=== PATIENT | female | born 1995 | race American Indian/Alaskan Native ===

== ENCOUNTER 2020-11-26 10:20 | Emergency (ER) | payer SELFPAY ==
[2020-11-26 11:27] VITALS: BP 117/80
--- NOTE | 2020-11-26 11:31 | Event Note ---
ED Screening Note ED Screening Note: hx of asthma has not had inhaler in 4 years for a couple days has had cough with mucus production, wheezing, SOB, chest tightness she is a current every day smoker LNMP 10/24/20 no significant wheezing on exam This initial assessment/diagnostic orders/clinical plan/treatment(s) is/are subject to change based on patients health status, clinical progression and re- assessment by fellow clinical providers in the ED. Further treatment and workup at subsequent clinical providers discretion. Patient/guardian urged not to elope from the ED as their condition may be serious if not clinically assessed and managed. Initial orders include: urine, preg, xr chest, meds
[2020-11-26] MEDS ORDERED: predniSONE 20 MG TAB PO ONE (11:37)
[2020-11-26] MEDS ORDERED: IPRATROPIUM/ALBUTEROL SULFATE 3 ML AMPUL.NEB IH ONE (11:37)
--- NOTE | 2020-11-26 11:54 | Emergency Department Report ---
ED General Adult HPI - General Chief complaint: Adult Asthma Stated complaint: ADALID Time Seen by Provider: 11/26/20 11:28 Source: patient Mode of arrival: Ambulatory Limitations: No Limitations - History of Present Illness Initial comments: 25-year-old female patient with history of exercise-induced asthma presents emergency department complaints of nonproductive cough and chest tightness starting 3 days ago. Patient does not have an inhaler at home. No known sick contacts. No current steroid or antibiotic use. No recent travel. Patient works in a warehouse. She has not received her COVID-19 vaccine series. Denies fever, chills, hemoptysis, nausea, vomiting, diarrhea. Denies all other complaints at this time. - Related Data Previous Rx's Medication Instructions Recorded Last Taken Type Albuterol Sulfate [Proair 90 mcg IH Q4H PRN #1 aer.pw.bas 11/26/20 Unknown Rx Digihaler] Benzonatate [Tessalon Perles] 200 mg PO Q8HR #30 capsule 11/26/20 Unknown Rx predniSONE [Deltasone] 20 mg PO QDAY 5 Days tab 11/26/20 Unknown Rx Allergies Allergy/AdvReac Type Severity Reaction Status Date / Time No Known Allergies Allergy Unverified 11/26/20 11:21 ED Review of Systems ROS: Stated complaint: ADALID Other details as noted in HPI Other: GENERAL: Negative for fever. CARDIOVASCULAR: Positive for chest tightness PULMONARY: Positive for cough GASTROINTESTINAL: Negative for abdominal pain. MUSCULOSKELETAL: Negative for back pain. NEUROLOGICAL: Negative for headache. INTEGUMENTARY: Negative for rash. ED Past Medical Hx - Past Medical History Previous Medical History?: Yes Hx Asthma: Yes - Surgical History Past Surgical History?: No - Social History Smoking Status: Current Every Day Smoker Substance Use Type: Alcohol - Medications Home Medications: Home Medications Medication Instructions Recorded Confirmed Last Taken Type Albuterol Sulfate [Proair 90 mcg IH Q4H PRN #1 aer.pw.bas 11/26/20 Unknown Rx Digihaler] Benzonatate [Tessalon Perles] 200 mg PO Q8HR #30 capsule 11/26/20 Unknown Rx predniSONE [Deltasone] 20 mg PO QDAY 5 Days tab 11/26/20 Unknown Rx ED Physical Exam - General Limitations: No Limitations - Other Other exam information: General: Awake and alert. No acute distress. Head: Atraumatic, normocephalic. Eyes: EOMI. Pupils are equal and round. Normal sclera and conjunctiva. ENT: Oral mucosa is moist. Normal pharyngeal exam. Neck: Supple. No lymphadenopathy. Pulmonary: No respiratory distress. Intermittent cough noted. Clear to auscultation bilaterally. Cardiac: Regular rate and rhythm. Pulses are palpable and equal bilaterally. No lower extremity cyanosis or edema. Skin: Warm and dry. No rashes. Abdomen: Soft, non-tender, non-protuberant. No guarding, rigidity, or rebound. Bowel sounds are normal. No organomegaly or masses noted. Back: Normal alignment. No CVA tenderness. Extremities: Symmetrical. Full range of motion intact. Neurological: Alert and oriented, appropriately interactive, no focal deficits. Psych: Cooperative. Appropriate mood and affect. Speech is evenly metered. Thoughts are logically construed. ED Course Vital Signs 11/26/20 11:24 Temperature 99 F Pulse Rate 83 Respiratory 20 Rate Blood Pressure 117/80 O2 Sat by Pulse 100 Oximetry ED Medical Decision Making - Medical Decision Making Differential diagnosis including but not limited to: asthma exacerbation, influenza, pneumonia, pleural effusion, pneumothorax, pertussis On reevaluation, patient remains stable. No hypoxia, no respiratory distress. States her symptoms have improved following breathing treatment ordered during medical screening examination. test ordered during medical screening examination is negative. History and exam findings suggestive of viral upper respiratory infection. Due to her history of asthma, patient will be discharged home with beta agonist inhaler and short course of glucocorticoids. Referred to primary care provider for close outpatient follow-up. Patient expressed understanding and is agreeable to plan of care. Lifestyle modifications discussed. Strict return precautions provided. Repeat exam is unremarkable and benign. History, exam, diagnostic testing, and current condition do not suggest worrisome pathology to warrant further testing, continued ED treatment, admission, or surgical evaluation at this point. Given the low probability of a significant medical illness, it would be more likely to result in harm than benefit to perform further testing at this stage. Discussed findings, presumptive diagnosis, need for follow-up and specific signs/symptoms that should prompt immediate return to the emergency department. Instructions were explained in detail to the patient in addition to giving written discharge information. Patient expressed understanding and was given the opportunity to ask questions, all of which were satisfactorily answered prior to discharge home. Critical care attestation.: If time is entered above; I have spent that time in minutes in the direct care of this critically ill patient, excluding procedure time. ED Disposition Clinical Impression: Viral upper respiratory tract infection with cough, History of asthma Disposition: TO HOME OR SELFCARE Is pt being admited?: No Does the pt Need Aspirin: No Condition: Stable Instructions: Viral Respiratory Infection, [id number] Additional Instructions: Use Albuterol as needed for wheezing. Take Prednisone with food as directed. Take Tessalon as directed for cough. Honey is an excellent natural cough suppressant. Avoid environmental triggers which may worsen your symptoms. Follow-up with primary care provider this week. Call tomorrow to schedule an appointment. Return to the emergency department immediately for new or worsening symptoms. Prescriptions: predniSONE [Deltasone] 20 mg PO QDAY 5 Days tab Albuterol Sulfate [Proair Digihaler] 90 mcg IH Q4H PRN #1 aer.pw.bas PRN Reason: Wheezing Benzonatate [Tessalon Perles] 200 mg PO Q8HR #30 capsule Referrals: PRIMARY CAREMD [Primary Care Provider] - 3-5 Days PA RUIZ MD [Staff Physician] - 3-5 Days [facility] [Outside] - 3-5 Days [facility] [Outside] - 3-5 Days [facility] [Outside] - 3-5 Days [facility] [Provider Group] - 3-5 Days Forms: Work/School Release Form(ED) Time of Disposition: 13:12
[2020-11-26 12:23] LABS: HCG Qualitative,Urine Negative (Negative)
--- NOTE | 2020-11-26 12:59 | XRay Report ---
XR chest routine 2V INDICATION / CLINICAL INFORMATION: cough, sob. COMPARISON: None available. FINDINGS: SUPPORT DEVICES: None. HEART /PULMONARY VASCULATURE: No significant abnormality. LUNGS / PLEURA: No significant pulmonary or pleural abnormality. No pneumothorax. ADDITIONAL FINDINGS: No significant additional findings. IMPRESSION: 1. No acute findings. Signer Name: Reno Bowling MD Signed: 11/26/2020 12:54 PM Workstation Name: [id number]
== END 2020-11-26 13:30 | disposition home or self-care (01) ==
LOC: EDSEX → ED 10:20
DX: J06.9 Acute upper respiratory infection, unspecified (principal); J45.909 Unspecified asthma, uncomplicated; F17.200 Nicotine dependence, unspecified, uncomplicated; Z72.89 Other problems related to lifestyle; Z79.899 Other long term (current) drug therapy
CPT/HCPCS: 71046; 81025; 99284; J7512

== ENCOUNTER 2020-12-22 10:53 | Emergency (ER) | payer SELFPAY ==
[2020-12-22 12:37] VITALS: BP 126/81
--- NOTE | 2020-12-22 13:08 | Emergency Department Report ---
ED General Adult HPI - General Chief complaint: Extremity Problem,Nontraumatic Stated complaint: LEG PAIN Time Seen by Provider: 12/22/20 13:04 Source: patient Mode of arrival: Ambulatory Limitations: No Limitations - History of Present Illness Initial comments: 25-year-old female patient presents to the emergency department with complaints of right lower back pain radiating to her right leg starting 3 days ago. Patient states she has experienced similar symptoms on a recurrent basis since sustaining an injury while playing basketball years ago. She has been taking Tylenol and Aleve with limited relief. There was no new fall, trauma, or injury. Patient states pain is worse with lifting and weightbearing. Denies headache, neck pain, bladder/bowel incontinence, urinary retention, saddle anesthesia, paresthesias, weakness, numbness. Denies all other complaints at this time. Severity scale (0 -10): 5 - Related Data Previous Rx's Medication Instructions Recorded Last Taken Type Albuterol Sulfate [Proair 90 mcg IH Q4H PRN #1 aer.pw.bas 11/26/20 Unknown Rx Digihaler] Benzonatate [Tessalon Perles] 200 mg PO Q8HR #30 capsule 11/26/20 Unknown Rx predniSONE [Deltasone] 20 mg PO QDAY 5 Days tab 11/26/20 Unknown Rx Lidocaine [Lidoderm] 1 each TP BID #20 adh..patch 12/22/20 Unknown Rx Naproxen 500 mg PO BID #20 tablet 12/22/20 Unknown Rx Allergies Allergy/AdvReac Type Severity Reaction Status Date / Time No Known Allergies Allergy Unverified 11/26/20 11:21 ED Review of Systems ROS: Stated complaint: LEG PAIN Other details as noted in HPI Other: GENERAL: Negative for fever. CARDIOVASCULAR: Negative for chest pain. PULMONARY: Negative for shortness of breath. GASTROINTESTINAL: Negative for abdominal pain. MUSCULOSKELETAL: Positive for back pain. NEUROLOGICAL: Negative for headache. INTEGUMENTARY: Negative for rash. ED Past Medical Hx - Past Medical History Previous Medical History?: Yes Hx Asthma: Yes - Surgical History Past Surgical History?: No - Social History Smoking Status: Current Every Day Smoker Substance Use Type: Alcohol - Medications Home Medications: Home Medications Medication Instructions Recorded Confirmed Last Taken Type Albuterol Sulfate [Proair 90 mcg IH Q4H PRN #1 aer.pw.bas 06/20/21 Unknown Rx Digihaler] Benzonatate [Tessalon Perles] 200 mg PO Q8HR #30 capsule 11/26/20 Unknown Rx predniSONE [Deltasone] 20 mg PO QDAY 5 Days tab 11/26/20 Unknown Rx Lidocaine [Lidoderm] 1 each TP BID #20 adh..patch 12/22/20 Unknown Rx Naproxen 500 mg PO BID #20 tablet 12/22/20 Unknown Rx ED Physical Exam - General Limitations: No Limitations - Other Other exam information: General: Awake, appropriately interactive, no acute distress. Neck: Supple. Full range of motion intact. Cardiovascular: Normal peripheral perfusion. Pulmonary: No respiratory distress. Patient is speaking normally without use of accessory muscles. Skin: No apparent rashes or lesions. Neurological: No facial asymmetry. Speech is clear. Follows commands. Patient is alert and oriented. Back: Right lumbar paraspinal tenderness. No palpable muscle spasm. No midline tenderness. No step-offs. Positive straight leg raise on the right with symptoms reproducible along the L3 nerve root distribution. No saddle anesthesia. Ambulatory without assistance. Psych: Cooperative. Appropriate mood and affect. ED Course Vital Signs 12/22/20 12:36 Temperature 97.9 F Pulse Rate 57 L Respiratory 18 Rate Blood Pressure 126/81 [Right] O2 Sat by Pulse 100 Oximetry ED Medical Decision Making - Medical Decision Making Differential diagnosis including but not limited to: sprain, strain, sciatica, disk herniation, cauda equina syndrome, spinal stenosis Patient presents to emergency department complaints of acute exacerbation of chronic back pain. History and exam findings consistent with sciatica. The patients back pain is not associated with numbness, tingling, or loss of strength. There is no acute urinary incontinence or retention and no bowel incontinence or retention. There is no saddle anesthesia. The patient is afebrile and neurovascularly intact. No clinical evidence for acute nerve compression (such as cauda equine syndrome) or infection (such as epidural abscess). It has been explained to the patient that advanced imaging such as CT or MRI is not indicated at this time but should be considered if symptoms recur or worsen. Discharged home with appropriate prescriptions and instructions to follow up with primary care provider. Strict return precautions provided. Emphasized the importance of outpatient follow-up and specific signs/symptoms that should warrant immediate return to the emergency department. Patient expressed understanding and was given the opportunity to ask questions, all of which were satisfactorily answered prior to discharge home. Critical care attestation.: If time is entered above; I have spent that time in minutes in the direct care of this critically ill patient, excluding procedure time. ED Disposition Clinical Impression: Acute exacerbation of chronic low back pain Disposition: TO HOME OR SELFCARE Is pt being admited?: No Does the pt Need Aspirin: No Condition: Stable Instructions: Acute Back Pain, Adult Additional Instructions: Take Tylenol every 4 hours as needed for pain. Take Naprosyn twice daily with food as needed for pain. Apply Lidoderm patches to affected area as needed for pain. Apply heat to affected area as needed for pain. Gradually advance physical activity slowly as tolerated. Follow-up with primary care provider this week. Call today to schedule an appointment. See referral information below. Return to the emergency department immediately for new or worsening symptoms. Prescriptions: Lidocaine [Lidoderm] 1 each TP BID #20 adh..patch Naproxen 500 mg PO BID #20 tablet Referrals: PA RUIZ MD [Staff Physician] - 3-5 Days [facility] [Provider Group] - 3-5 Days Forms: Work/School Release Form(ED) Time of Disposition: 13:08
== END 2020-12-22 13:20 | disposition home or self-care (01) ==
LOC: ED 10:53
DX: M54.5 Low back pain (principal); G89.29 Other chronic pain; J45.909 Unspecified asthma, uncomplicated; F17.200 Nicotine dependence, unspecified, uncomplicated; Z79.899 Other long term (current) drug therapy
CPT/HCPCS: 99281